=== PATIENT | female | born 1960 | race Two or more races ===

== ENCOUNTER 2022-01-18 05:23 | Inpatient (IN) | payer MEDICAID, OTHER ==
[~2022-01-18] VITALS: Ht 162.6 cm; Wt 88.6 kg
[2022-01-18 06:36] LABS: Basophils # (auto) 0.2 10 ^3/uL (0-0.2); Basophils % (auto) 1.5 % (0.0-2.0); Eosinophils # (auto) 0.3 10 ^3/uL (0-0.8); Eosinophils % (auto) 2.5 % (0.0-7.0); Hematocrit 40.7 % (36.0-46.0); Hemoglobin 13.9 g/dL (12.2-16.2); Lymphocytes # (auto) 1.4 10 ^3/uL (0.4-5.4); Lymphocytes % (auto) 13.9 % (10.0-50.0); Mean Corpuscular Hemoglobin 31.7 pg (28.0-32.0); Mean Corpuscular Hgb Conc. 34.2 g/dL (32.0-36.0); Mean Corpuscular Volume 92.6 fL (80.0-100.0); Monocytes # (auto) 0.5 10 ^3/uL (0-1.3); Monocytes % (auto) 4.7 % (0.0-12.0); Neutrophils # (auto) 7.8 10 ^3/uL (1.6-8.6); Neutrophils % (auto) 77.4 % (37.0-80.0); Nucleated Red Blood Cells % 0.2 %; Red Blood Cells 4.39 10^6/uL (4.0-5.20); Red Cell Distribution Width 13.1 % (11.8-14.3); White Blood Cell 10.1 10^3/uL (4.4-10.8)
[2022-01-18 06:56] LABS: Alanine Aminotransferase 82 U/L (13-56); Albumin 4.1 g/dL (3.4-5.0); Anion Gap 6 (5-15); Aspartate Aminotransferase 49 U/L (15-37); BUN/Creatinine Ratio 17.5; Blood Urea Nitrogen 14 mg/dL (7-18); Calcium 9.6 mg/dL (8.5-10.1); Carbon Dioxide 25 mmol/L (21-32); Chloride 107 mmol/L (98-107); GFR African American 93 mL/min; GFR Non-African American 77 mL/min; Glucose 118 mg/dL (74-106); Lipase 90 U/L (73-393); Potassium 4.3 mmol/L (3.5-5.1); Sodium 138 mmol/L (136-145)
[2022-01-18 07:01] LABS: Alkaline Phosphatase 82 U/L (45-117); Bilirubin, Total 0.6 mg/dL (0.2-1.0); Total Protein 7.6 g/dL (6.4-8.2)
[2022-01-18] MEDS ORDERED: SODIUM CHLORIDE 0.9% 500 ML IVB ONE (08:30)
[2022-01-18] MEDS ORDERED: METOCLOPRAMIDE HCL 5MG/ml INJ 2ml VIAL IV ONE (08:30)
[2022-01-18] MEDS ORDERED: HYDROmorphone HCL 2 MG/ML VL IV ONE ×2 (08:30→12:15)
[2022-01-18] MEDS ORDERED: SODIUM CHLORIDE 0.9% 1,000 ML IV ONE (08:30)
[2022-01-18 11:06] LABS: Urine Bacteria FEW /hpf (None Seen); Urine Blood 1+ /uL (Negative); Urine Mucus MODERATE (None Seen); Urine WBC 2 /hpf (0 - 5)
[2022-01-18 11:19] LABS: Urine Specific Gravity > 1.050 (1.001-1.035)
[2022-01-18] MEDS ORDERED: MORPHINE SULFATE 4 MG/ML SYR/VIAL IV PRN (13:00)
[2022-01-18] MEDS ORDERED: NITROGLYCERIN 0.4 MG SL TAB SL PRN (13:00)
[2022-01-18] MEDS ORDERED: ONDANSETRON HCL 4 MG/2 ML VIAL IV PRN (13:00)
[2022-01-18] MEDS ORDERED: ACETAMINOPHEN 325 MG TAB PO PRN (13:00)
[2022-01-18] MEDS ORDERED: MORPHINE SULFATE INJECTION 2 MG/ML SYRG IV PRN (13:00)
[2022-01-18] MEDS: SODIUM CHLORIDE 0.9% 1,000 ML IV SCH ×2 (13:37→23:47)
[2022-01-18] MEDS ORDERED: MANNITOL FTV 25% 12.5 GM/50 ML 50 ML IV ONE (14:00)
[2022-01-18] MEDS: HYDROcodone-ACET 5/325MG TAB PO PRN ×2 (18:25→23:56)
[2022-01-18] MEDS: TAMSULOSIN HYDROCHLORIDE 0.4 MG CAP PO SCH (18:25)
[2022-01-18 22:00] VITALS: BP 108/66
[2022-01-19] VITALS (8 sets, daily range): BP systolic 108–138; BP diastolic 56–77
[2022-01-19 05:12] LABS: Basophils # (auto) 0 10 ^3/uL (0-0.2); Basophils % (auto) 0.6 % (0.0-2.0); Eosinophils # (auto) 0 10 ^3/uL (0-0.8); Eosinophils % (auto) 0.6 % (0.0-7.0); Hematocrit 33.7 % (36.0-46.0); Hemoglobin 11.5 g/dL (12.2-16.2); Lymphocytes % (auto) 24.9 % (10.0-50.0); Mean Corpuscular Hemoglobin 31.5 pg (28.0-32.0); Mean Corpuscular Hgb Conc. 34.1 g/dL (32.0-36.0); Mean Corpuscular Volume 92.3 fL (80.0-100.0); Monocytes # (auto) 0.7 10 ^3/uL (0-1.3); Monocytes % (auto) 9.2 % (0.0-12.0); Neutrophils # (auto) 5.1 10 ^3/uL (1.6-8.6); Neutrophils % (auto) 64.7 % (37.0-80.0); Nucleated Red Blood Cells % 0.1 %; Red Blood Cells 3.65 10^6/uL (4.0-5.20); Red Cell Distribution Width 12.9 % (11.8-14.3); White Blood Cell 7.9 10^3/uL (4.4-10.8)
[2022-01-19 05:24] LABS: Potassium 3.5 mmol/L (3.5-5.1)
[2022-01-19 05:29] LABS: BUN/Creatinine Ratio 21.4; Calcium 8.3 mg/dL (8.5-10.1)
[2022-01-19 05:31] LABS: Bilirubin, Total 0.6 mg/dL (0.2-1.0); Total Protein 5.6 g/dL (6.4-8.2)
[2022-01-19] MEDS: ENOXAPARIN SOD 40 MG/0.4 ML SYRINGE SC SCH (07:43)
[2022-01-19 09:10] LABS: INR 1.05 (0.9-1.15); Partial Thromboplastin Time 21.7 sec (23.6-33.0)
[2022-01-19] MEDS: SODIUM CHLORIDE 0.9% 1,000 ML IV SCH ×2 (09:20→13:30)
[2022-01-19] MEDS: HYDROcodone-ACET 5/325MG TAB PO PRN ×2 (12:49→17:58)
[2022-01-19] MEDS ORDERED: LIDOCAINE 2%HCL (LOCAL ANESTH.) INJ 20ML MDV ONE ×2 (13:26→14:13)
[2022-01-19] MEDS ORDERED: fentaNYL CITRATE 100 MCG/2 ML VL ONE (13:26)
[2022-01-19] MEDS ORDERED: MIDAZOLAM HCL 2MG/2ML 2ml VIAL (1mg/ml) ONE (13:26)
[2022-01-19] MEDS ORDERED: IODIXANOL 320MG/ML 100ML BTL IV ONE (13:26)
[2022-01-19] MEDS ORDERED: cefTRIAXone 1GM/50ML D5W 50 ML IV ONE (14:11)
[2022-01-19] MEDS: TAMSULOSIN HYDROCHLORIDE 0.4 MG CAP PO SCH (17:58)
[2022-01-20 05:03] VITALS: BP 122/81
[2022-01-20 09:02] VITALS: BP 119/72
[2022-01-20] MEDS: ENOXAPARIN SOD 40 MG/0.4 ML SYRINGE SC SCH (10:04)
[2022-01-20] MEDS: HYDROcodone-ACET 5/325MG TAB PO PRN (10:05)
[2022-01-20] MEDS ORDERED: HYDR-4902 PO (11:02)
[2022-01-20 12:36] VITALS: BP 117/82
[2022-01-20] MEDS: SODIUM CHLORIDE 0.9% 1,000 ML IV SCH (13:30)
== END 2022-01-20 13:58 | disposition home health service (06) | DRG 465 ==
LOC: ER 05:23 → TELE 12:56 → TELE-WESTW 15:36
PROVIDERS: ADMIT Internal Medicine; ATTEND Internal Medicine
PROC: 0T9030Z Drainage of Right Kidney with Drainage Device, Percutaneous Approach (ICD-10-PCS; principal; 2022-01-19)
PROC: BT1DYZZ Fluoroscopy of Right Kidney, Ureter and Bladder using Other Contrast (ICD-10-PCS; 2022-01-19)
PROC: BT41ZZZ Ultrasonography of Right Kidney (ICD-10-PCS; 2022-01-19)
DX: N13.2 Hydronephrosis with renal and ureteral calculous obstruction (principal); F41.9 Anxiety disorder, unspecified; R74.01 Elevation of levels of liver transaminase levels; K59.00 Constipation, unspecified; I10 Essential (primary) hypertension; Z20.822 Contact with and (suspected) exposure to COVID-19; Z85.3 Personal history of malignant neoplasm of breast; Z90.13 Acquired absence of bilateral breasts and nipples; Z87.891 Personal history of nicotine dependence
CPT/HCPCS: 36415; 50432; 71045; 74177; 74425; 76000; 76942; 80053; 81001; 83690; 83735; 84484; 85025; 85610; 85730; 87426; 93005; 96361; 96374; 96375; 96376; 99152; 99153; C1729; G0378; J0696; J2250; Q9967

== ENCOUNTER 2022-02-16 08:08 | Emergency (ER) | payer MEDICAID ==
[~2022-02-16] VITALS: Ht 162.6 cm; Wt 80.7 kg
[~2022-02-16 08:08] MED LIST: HYDR-4902 PO
[2022-02-16 09:40] VITALS: BP 113/92
[2022-02-16] MEDS ORDERED: ACETAMINOPHEN 325 MG TAB PO ONE (11:45)
== END 2022-02-16 14:50 | disposition home or self-care (01) ==
LOC: ER 08:08
DX: T83.092A Other mechanical complication of nephrostomy catheter, initial encounter (principal); N20.1 Calculus of ureter; I10 Essential (primary) hypertension; E78.5 Hyperlipidemia, unspecified; Z87.891 Personal history of nicotine dependence; Z79.899 Other long term (current) drug therapy; Z88.1 Allergy status to other antibiotic agents; Z88.8 Allergy status to other drugs, medicaments and biological substances
CPT/HCPCS: 74176

== ENCOUNTER 2025-09-20 10:58 | Emergency (ER) | payer OTHER, MEDICAID ==
[~2025-09-20] VITALS: Ht 172.7 cm; Wt 54.5 kg
--- NOTE | 2025-09-20 12:23 | ECG ---
[facility] Test Date: 2025-09-20 Test Time: 11:09:22 Pat Name: AKIRA DEL CID Department: [facility] ED Patient ID: [id number] Room: Gender: F Instructor Flying: MAR : 1960 Requested By: CHRISTINA KING Order Number: [id number] Reading MD: Fredis Phillips Measurements Intervals [place] Rate: 114 P: 76 IN: 121 QRS: 91 QRSD: 63 T: -27 QT: 381 QTc: 525 Interpretive Statements Sinus tachycardia Multiform ventricular premature complexes Aberrant complex Probable left atrial enlargement Right axis deviation Borderline abnrm T, anterolateral leads Prolonged QT interval Electronically Signed On 09-25-2025 13:26:55 PST by Fredis Phillips Please click the below link to view image of tracing.
[2025-09-20 12:30] VITALS: PULSE 109; RESP 24; TEMP 97.5; O2SAT 100
[2025-09-20 13:26] LABS: Hematocrit 37.7 % (36.0-46.0); Hemoglobin 12.3 g/dL (12.2-16.2); Mean Corpuscular Hemoglobin 31.7 pg (28.0-32.0); Mean Corpuscular Volume 97.0 fL (80.0-100.0)
[2025-09-20 13:41] LABS: Alanine Aminotransferase 14 U/L (7-40); Albumin 3.4 g/dL (3.2-4.8); Anion Gap 14 (5-15); BUN/Creatinine Ratio 35.5 (10.0-20.0); Bilirubin, Total 1.2 mg/dL (0.2-1.0); Blood Urea Nitrogen 22 mg/dL (9-23); Calcium 8.7 mg/dL (8.7-10.4); Carbon Dioxide 22 mmol/L (20-31); Potassium 4.6 mmol/L (3.5-5.1); Total Protein 5.8 g/dL (5.7-8.2)
[2025-09-20 13:42] LABS: Alkaline Phosphatase 127 U/L (46-116); Chloride 92 mmol/L (98-107); Glucose 72 mg/dL (74-106); Sodium 128 mmol/L (136-145)
[2025-09-20 13:48] LABS: Total Cells Counted 100.0 (100)
[2025-09-20 13:49] LABS: RBC Morphology Normal
[2025-09-20 13:53] LABS: Nucleated Red Blood Cells % 0.0 %
--- NOTE | 2025-09-20 16:58 | DVH ---
CHEST RADIOGRAPH Indication: sob Technique: Single frontal view of the chest was obtained Comparison: CHEST PORTABLE on DOS: 01/18/22 FINDINGS: Lines and Tubes: None Lungs: Airspace disease the right chest. Areas of pulmonary consolidation in the right base.. Pleura: No effusion. No pneumothorax. Cardiomediastinal contours: Unremarkable Bones: No acute osseous abnormality. IMPRESSION: 1. Development of airspace disease throughout the right chest. 2. Areas of consolidation right base. May represent infection or atelectasis. May also represent supe rimposed breast tissue in these areas.
[2025-09-20 17:00] VITALS: BP 122/83; PULSE 115; RESP 25; O2SAT 99
[2025-09-20] MEDS: SODIUM CHLORIDE 0.9% 1,900 ML IV ONE (20:09)
--- NOTE | 2025-09-21 11:11 | ED.PDOC ---
History of Present Illness HPI Comments This is a 64 year old female GEOFFA presenting to the ED with chief complaint generalized weakness. Patient reports that she was unable to get off the toilet today and has been feeling generally weak for the past 3 days with associated diarrhea. Patient relays that she has an important MRI scheduled tomorrow at [place] to see the progress of her lung cancer. Patient denies any chest pain, SOB, dizziness, headache, or N/V. Chief Complaint: General Weakness Time Seen by MD: 12:41 Reviewed Notes: Nurses Notes, Medications, Allergies Allergies: Coded Allergies: Piperacillin (Verified Allergy, Mild, ITCHING, 01/18/22) Propoxyphene (Verified Allergy, Mild, VOMITING, 01/18/22) Tazobactam (Verified Allergy, Mild, ITCHING, 01/18/22) Home Meds Active Scripts Hydrocodone-Acetaminophen (Hydrocodone Bitartrate/AC 5-325 mg) 1 Tab Tab, 1 TAB PO Q8HP PRN, #14 TAB Prov:LOS ESPITIA MD 01/20/22 Information Source: Patient Mode of Arrival: EMS Severity: Moderate Timing: Hours Duration: Since onset Prehospital treatment: None Past Medical History PAST MEDICAL HISTORY: Anxiety, High Lipids, HTN OFFICE SWEEPER History: Denies all OFFICE SWEEPER Hx Family History Family History: Reviewed,noncontributory to illness Social History Smoker: Quit Greater Than 1 Year, Cigarettes Alcohol: Occasionally Drugs: Denies Drug Use Lives In: Home Constitutional: reports: weakness; denies: chills, diaphoresis, fatigue, fever, malaise, sweats, others EENTM: denies: blurred vision, double vision, ear bleeding, ear discharge, ear drainage, ear pain, ear ringing, eye pain, eye redness, hearing loss, mouth pain, mouth swelling, nasal discharge, nose bleeding, nose congestion, nose pain, photophobia, tearing, throat pain, throat swelling, voice changes, others Respiratory: denies: cough, hemoptysis, orthopnea, SOB at rest, shortness of breath, SOB with excertion, stridor, wheezing, others Cardiovascular: denies: chest pain, dizzy spells, diaphoresis, Dyspnea on exertion, edema, irregular heart beat, left arm pain, lightheadedness, palpitations, PND, syncope, others Gastrointestinal: reports: diarrhea; denies: abdomen distended, abdominal pain, blood streaked bowels, constipated, dysphagia, difficulty swallowing, hematemesis, melena, nausea, poor appetite, poor fluid intake, rectal bleeding, rectal pain, vomiting, others Genitourinary: denies: abnormal vagina bleeding, burning, dyspareunia, dysuria, flank pain, frequency, hematuria, incontinence, pain, , vagina discharge, urgency, others Neurological: denies: dizziness, fainting, headache, left sided numbness, left sided weakness, numbness, paresthesia, pre-existing deficit, right sided numbness, right sided weakness, seizure, speech problems, tingling, tremors, weakness, others Musculoskeletal: denies: back pain, gout, joint pain, joint swelling, muscle pain, muscle stiffness, neck pain, others Integumetry: denies: bruises, change in color, change in hair/nails, dryness, laceration, lesions, lumps, rash, wounds, others Allergic/Immunocompromised: denies: Difficulty Healing, Frequent Infections, Hives, Itching, others Hematologic/Lymphatic: denies: anemia, blood clots, easy bleeding, easy bruising, swollen glands, others Endocrine: denies: excessive hunger, excessive sweating, excessive thirst, excessive urination, flushing, intolerance to cold, intolerance to heat, unexplained weight gain, unexplained weight loss, others Psychiatric: denies: anxiety, bipolar disorder, depression, hopeless, panic disorder, schizophrenia, sleepless, suicidal, others All Other Systems: Reviewed and Negative Physical Exam General Appearance: No Apparent Distress, Other (Chronically ill appearing) HEENT: Normal ENT Inspection, Pharynx Normal, TMs Normal Neck: Full Range of Motion, Non-Tender, Normal, Normal Inspection Respiratory: Chest Non-Tender, Lungs Clear, No Accessory Muscle Use, No Respiratory Distress, Normal Breath Sounds Cardiovascular: No Edema, No JVD, No Murmur, No Gallop, Normal Peripheral Pulses, Regular Rate/Rhythm Breast Exam: Deferred Gastrointestinal: No Organomegaly, Non Tender, No Pulsatile Mass, Normal Bowel Sounds, Soft Genitalia: Deferred Pelvic: Deferred Rectal: Deferred Extremities: No calf tenderness, Normal capillary refill, Normal inspection, Normal range of motion, Non-tender, No pedal edema Musculoskeletal : Apperance: Normal Neurologic: Alert, 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 Was a procedure done?: No Differential Dx Considerations may include: acs, cva, viral syndrome, pneumonia, uti, pyelonephritis, electrolyte abnormality X-Ray, Labs, Meds, VS Vital Signs Date Time Temp Pulse Resp B/P (MAP) Pulse Ox O2 Delivery O2 Flow Rate FiO2 09/20/25 17:00 115 25 122/83 (96) 99 09/20/25 15:00 109 28 110/72 (85) 100 09/20/25 14:00 118 30 115/71 (86) 100 09/20/25 12:30 97.5 109 24 115/69 (84) 100 97.5 09/20/25 12:30 109 24 100 Nasal Cannula* 2 28 09/20/25 11:13 114 09/20/25 11:02 98.0 123 26 128/73 94 98.0 Lab Test 09/20/25 13:07 Range/Units White Blood Count 3.4 L 4.4-10.8 10^3/uL Red Blood Count 3.89 L 4.0-5.20 10^6/uL Hemoglobin 12.3 12.2-16.2 g/dL Hematocrit 37.7 36.0-46.0 % Mean Corpuscular Volume 97.0 80.0-100.0 fL Mean Corpuscular Hemoglobin 31.7 28.0-32.0 pg Mean Corpuscular Hemoglobin Concent 32.7 32.0-36.0 g/dL Red Cell Distribution Width 14.1 11.8-14.3 % Platelet Count 63 L 140-450 10^3/uL Mean Platelet Volume 8.8 6.9-10.8 fL Neutrophils (%) (Auto) 76.5 37.0-80.0 % Lymphocytes (%) (Auto) 10.9 10.0-50.0 % Monocytes (%) (Auto) 11.6 0.0-12.0 % Eosinophils (%) (Auto) 0.7 0.0-7.0 % Basophils (%) (Auto) 0.3 0.0-2.0 % Neutrophils # (Auto) 2.6 1.6-8.6 10 ^3/uL Lymphocytes # (Auto) 0.4 0.4-5.4 10 ^3/uL Monocytes # (Auto) 0.4 0-1.3 10 ^3/uL Eosinophils # (Auto) 0 0-0.8 10 ^3/uL Basophils # (Auto) 0 0-0.2 10 ^3/uL Differential Total Cells Counted 100.0 100 Neutrophils % (Manual) 72 37.0-80.0 Band Neutrophils % (Manual) 4 Lymphocytes % (Manual) 11 10.0-50.0 Monocytes % (Manual) 12 0-12 Eosinophils % (Manual) 1 0-7 Basophils % (Manual) 0 0.0-2.0 Metamyelocytes % (manual) 0 Myelocytes % (Manual) 0 Promyelocytes % (Manual) 0 Blast Cells % (Manual) 0 Nucleated Red Blood Cells 0.0 % Reactive Lymphocytes 0 Platelet Estimate Decreased Red Blood Cell Morphology Normal Sodium Level 128 L 136-145 mmol/L Potassium Level 4.6 3.5-5.1 mmol/L Chloride Level 92 L 98-107 mmol/L Carbon Dioxide Level 22 20-31 mmol/L Anion Gap 14 5-15 Blood Urea Nitrogen 22 9-23 mg/dL Creatinine 0.62 0.550-1.02 mg/dL Glomerular Filtration Rate Calc 98 >90 mL/min BUN/Creatinine Ratio 35.5 H 10.0-20.0 Serum Glucose 72 L 74-106 mg/dL Lactic Acid Level 2.0 0.4-2.0 mmol/L Calcium Level 8.7 8.7-10.4 mg/dL Total Bilirubin 1.2 H 0.2-1.0 mg/dL Aspartate Amino Transferase (AST) 27 13-40 U/L Alanine Aminotransferase (ALT) 14 7-40 U/L Alkaline Phosphatase 127 H 46-116 U/L Total Protein 5.8 5.7-8.2 g/dL Albumin 3.4 3.2-4.8 g/dL Microbiology Date/Time Source Procedure Growth Status 09/20/25 13:12 Blood Blood Culture - Preliminary NO GROWTH AFTER 48 HOURS OF INCUBATION. Resulted 09/20/25 13:07 Blood Blood Culture - Preliminary NO GROWTH AFTER 48 HOURS OF INCUBATION. Resulted [facility] [id number] [place] [id number] Ph: [phone] DIAGNOSTIC IMAGING Diagnostic Imaging Report : [id number] Signed PATIENT: AKIRA DEL CID ACCT: [id number] UNIT: [id number] : 1960 LOC: ER ROOM / BED: / AGE / SEX: 64 / F ADM STATUS: REG ER SERVICE [id number] ORDERING PHYSICIAN: CHRISTINA KING MD PROCEDURE(s): CXRP - CHEST PORTABLE REASON: sob ORDER NUMBER(s): [id number], ACCESSION NUMBER(s): [id number] CHEST RADIOGRAPH Indication: sob Technique: Single frontal view of the chest was obtained Comparison: CHEST PORTABLE on DOS: 01/18/22 FINDINGS: Lines and Tubes: None Lungs: Airspace disease the right chest. Areas of pulmonary consolidation in the right base.. Pleura: No effusion. No pneumothorax. Cardiomediastinal contours: Unremarkable Bones: No acute osseous abnormality. IMPRESSION: 1. Development of airspace disease throughout the right chest. 2. Areas of consolidation right base. May represent infection or atelectasis. May also represent superimposed breast tissue in these areas. ATED BY: DIANA PEREYRA Jr., DO DICTATED DATE/TIME: 09/20/251654 SIGNED BY: DIANA PEREYRA Jr., SIGNED DATE/TIME: 09/20/251654 CC: Time of 1ST Reevaluation: 13:41 Reevaluation 1ST: Unchanged Patient Education/Counseling: Diagnosis, Treatment Family Education/Counseling: No Family Present SEPSIS Sepsis Screen Date sepsis recognized/suspect: Sep 20, 2025 Time Sepsis recognized/suspect: 1105 Recent Procedure: No On Antibiotic Therapy: No Respiratory Rate >20: Yes Heart Rate >90: Yes Temp<36 C (96.8 F) or >38.3 C: No SBP <90 or MAP <65 mmHG: No New Acute Mental Status Change: No Is the patient on CPAP, BIPAP,: No Physician Orders Blood Culture (09/20/25 11:06) Chest Portable (09/20/25 16:25) Vital Signs Date Time Temp Pulse Resp B/P (MAP) Pulse Ox O2 Delivery O2 Flow Rate FiO2 09/20/25 17:00 115 25 122/83 (96) 99 09/20/25 15:00 109 28 110/72 (85) 100 09/20/25 14:00 118 30 115/71 (86) 100 09/20/25 12:30 97.5 109 24 115/69 (84) 100 97.5 09/20/25 12:30 109 24 100 Nasal Cannula* 2 28 09/20/25 11:13 114 09/20/25 11:02 98.0 123 26 128/73 94 98.0 Laboratory Tests Test 09/20/25 13:07 Lactic Acid Level 2.0 mmol/L (0.4-2.0) White Blood Count 3.4 10^3/uL (4.4-10.8) L Departure 1 Departure Time of Disposition: 18:46 (patient with worsening weakness and inability to care for herself at home. ) Impression: Primary Impression: Acute and chronic respiratory failure Disposition: ADMITTED INPATIENT Admit to: Med Surg Condition: Guarded Critical Care Note Critical Care Time?: Yes Critical care comment: Acute on chronic respiratory failure Authorized and Performed by: Christina King MD Total critical care time: Approximately 37 minutes Due to a high probability of clinically significant, life threatening deterioration, the patient required my highest level of preparedness to intervene emergently and I personally spent this critical care time directly and personally managing the patient. This critical care time included obtaining a history; examining the patient; pulse oximetry; ordering and review of studies; arranging urgent treatment with development of a management plan; evaluation of patient's response to treatment; frequent reassessment; and, discussions with other providers. This critical care time was performed to assess and manage the high probability of imminent, life-threatening deterioration that could result in multi-organ failure. It was exclusive of separately billable procedures and treating other patients and teaching time. Please see my other sections and the rest of the note for further information on patient assessment and treatment. Stability Stability form required: No Heart Score Heart Score: Heart Score Response (Comments) Value History N/A 0 EKG N/A 0 Age N/A 0 Risk Factors N/A 0 Troponin N/A 0 Total 0 I personally scribed for CHRISTINA KING MD ([email or web address]) on 09/20/25 at 12:45. Electronically submitted by Bhupendra Bradshaw ([email or web address]). I personally scribed for CHRISTINA KING MD ([email or web address]) on 09/20/25 at 17:28. Electronically submitted by Kehinde Ramos ([email or web address]). CHRISTINA KING MD Sep 20, 2025 12:45
== END 2025-09-20 20:15 | disposition left against medical advice (07) ==
LOC: EDBD 10:58 → ER 10:58
DX: J96.20 Acute and chronic respiratory failure, unspecified whether with hypoxia or hypercapnia (principal); F41.9 Anxiety disorder, unspecified; E78.5 Hyperlipidemia, unspecified; I10 Essential (primary) hypertension; F10.90 Alcohol use, unspecified, uncomplicated; Z79.899 Other long term (current) drug therapy; Z88.0 Allergy status to penicillin; Z87.891 Personal history of nicotine dependence; Y90.9 Presence of alcohol in blood, level not specified
CPT/HCPCS: 36415; 71045; 80053; 83605; 85025; 87040; 93005; 99291